=== PATIENT | male | born 1975 | race Caucasian/White ===

== ENCOUNTER 2020-03-03 07:20 | Emergency (ER) | payer SELFPAY ==
[~2020-03-03] VITALS: Ht 177.8 cm; Wt 77.3 kg
[2020-03-03 07:28] VITALS: BP 127/87; Ht 177.8 cm; Wt 77.3 kg
[2020-03-03] MEDS ORDERED: NAPROSYN500 MG PO (08:12)
== END 2020-03-03 08:31 | disposition home or self-care (01) ==
LOC: D.ER 07:20
DX: S43.102A Unspecified dislocation of left acromioclavicular joint, initial encounter (principal); S43.402A Unspecified sprain of left shoulder joint, initial encounter; W11.XXXA Fall on and from ladder, initial encounter; Y93.9 Activity, unspecified; Y92.9 Unspecified place or not applicable